=== PATIENT | male | born 1965 | race Two or more races ===

== ENCOUNTER 2017-03-20 18:19 | Emergency (ER) | payer MEDICAID ==
[~2017-03-20] VITALS: Ht 175.3 cm; Wt 74.8 kg
[2017-03-20 18:43] VITALS: BP 120/80
== END 2017-03-20 20:21 | disposition left against medical advice (07) ==
LOC: ER 18:26
DX: M79.672 Pain in left foot (principal); M79.671 Pain in right foot; Z53.21 Procedure and treatment not carried out due to patient leaving prior to being seen by health care provider